=== PATIENT | male | born 1965 | race Caucasian/White ===

== ENCOUNTER 2018-06-17 09:01 | Day surgery (SDC) | payer BC ==
[~2018-06-17 09:01] MED LIST: Lactated Ringers 1,000 ML IV SCH; Lidocaine 1%/Sod Bicarbonate in NS 8.4% 1 ML Syringe IDERM PRN; Sodium Chloride 0.9% 10 ML Syringe FLUSH PRN
--- NOTE | 2018-06-17 09:11 | PCM.PREANE ---
Preanesthetic Assessment - Procedure Proposed Procedure: screening colonoscopy - Anesthesia/Transfusion/Family Hx Anesthesia History: Prior Anesthesia Without Reaction Family History of Anesthesia Reaction: No Transfusion History: No Prior Transfusion(s) - Review of Systems General: No Symptoms Pulmonary: No Symptoms, Other (had a cold a month ago- some cough still) Cardiovascular: No Symptoms Gastrointestinal: No Symptoms Neurological: No Symptoms Other: Reports: None - Physical Assessment NPO Status Date: 06/16/18 NPO Status Time: 04:00 (finished prep) Pulse: 72 O2 Sat by Pulse Oximetry: 98 Respiratory Rate: 16 Blood Pressure: 158/92 Temperature: 97.6 F Height: 6 ft 1 in Weight: 123.286 kg ASA Class: 2 Mental Status: Alert & Oriented x3 Dentition: Reports: Normal Dentition Thyro-Mental Finger Breadths: 3 Mouth Opening Finger Breadths: 3 ROM/Head Extension: Full Lungs: Clear to Auscultation, Normal Respiratory Effort Cardiovascular: Regular Rate, Regular Rhythm - Allergies Allergies/Adverse Reactions: Allergies Allergy/AdvReac Type Severity Reaction Status Date / Time No Known Allergies Allergy Verified 06/16/18 14:48 - Blood Blood Available: No - Acknowledgements Anesthesia Type Planned: MAC Pt an Appropriate Candidate for the Planned Anesthesia: Yes Alternatives and Risks of Anesthesia Discussed w Pt/Guardian: Yes Pt/Guardian Understands and Agrees with Anesthesia Plan: Yes PreAnesthesia Questionnaire HEENT History: Reports: Impaired Vision, Other (See Below) Other HEENT History: wears glasses Cardiovascular History: Reports: High Cholesterol, Hypertension Respiratory History: Reports: None Gastrointestinal History: Reports: Other (See Below) Other Gastrointestinal History: acid reflux, indigestion, sigmoid diverticulitis , abdominal pain Genitourinary History: Reports: Other (See Below) Other Genitourinary History: erectile dysfunction, hematuria, nocturia BURRER HAND History: Reports: None Musculoskeletal History: Reports: Gout, Other (See Below) Other Musculoskeletal History: achilles tendinitis, elbow bursitis, shoulder bursitis Neurological History: Reports: None Psychiatric History: Reports: None Endocrine/Metabolic History: Reports: Obesity/BMI 30+, Other (See Below) Other Endocrine/Metabolic History: hyperglycemia Hematologic History: Reports: Other (See Below) Other Hematologic History: supeficial thrombophelbitis Immunologic History: Reports: None Oncologic (Cancer) History: Reports: None Dermatologic History: Reports: None - Past Surgical History Head Surgeries/Procedures: Reports: None Cardiovascular Surgical History: Reports: None Respiratory Surgical History: Reports: None GI Surgical History: Reports: Colonoscopy Female Surgical History: Reports: None Male Surgical History: Reports: None Endocrine Surgical History: Reports: None Neurological Surgical History: Reports: None Musculoskeletal Surgical History: Reports: Arthroscopic Knee Oncologic Surgical History: Reports: None Dermatological Surgical History: Reports: None - SUBSTANCE USE Smoking Status *Q: Former Smoker (chewed 9 years ago) Tobacco Use Within Last Twelve Months: No Second Hand Smoke Exposure: No Days Per Week of Alcohol Use: 3 Number of Drinks Per Day: 5 Total Drinks Per Week: 15 Recreational Drug Use History: No - HOME MEDS Home Medications: Home Meds Allopurinol [Zyloprim] 100 mg PO DAILY 06/20/14 [History] hydroCHLOROthiazide [Hydrochlorothiazide] 25 mg PO DAILY 06/20/14 [History] Aspirin [Ecotrin] 81 mg PO DAILY 03/23/15 [History] Simvastatin [Zocor] 20 mg PO Q48H 03/23/15 [History] Lisinopril 20 mg PO DAILY 06/16/18 [History] Omeprazole 20 mg PO DAILY 06/16/18 [History] Sildenafil Citrate [Sildenafil] 60 mg PO ONETIME PRN 06/16/18 [History] Simvastatin 10 mg PO Q48H 06/16/18 [History] - CURRENT (IN HOUSE) MEDS Current Meds: Current Medications Lactated Ringer's (Ringers, Lactated) 1,000 mls @ 125 mls/hr IV ASDIRECTED NIGHAT Stop: 06/17/18 23:00 Lidocaine/Sodium Bicarbonate (Buffered Lidocaine 1% In Ns 8.4%) 0.25 ml IDERM ONETIME PRN PRN Reason: Prior to IV Start Stop: 06/17/18 18:00 Sodium Chloride (Saline Flush) 10 ml FLUSH ASDIRECTED PRN PRN Reason: Keep Vein Open Stop: 06/17/18 18:00 Discontinued Medications Lactated Ringer's (Ringers, Lactated) 1,000 mls @ 125 mls/hr IV ASDIRECTED NIGHAT Lidocaine/Sodium Bicarbonate (Buffered Lidocaine 1% In Ns 8.4%) 0.25 ml IDERM ONETIME PRN PRN Reason: Prior to IV Start Sodium Chloride (Saline Flush) 10 ml FLUSH ASDIRECTED PRN PRN Reason: Keep Vein Open
[2018-06-17] MEDS ORDERED: Midazolam 1 MG/ML 2 ML SDV ONE (09:31)
[2018-06-17] MEDS ORDERED: Propofol 200 MG/20 ML SDV ONE ×2 (09:31→09:57)
[2018-06-17] MEDS ORDERED: Lidocaine 1% 4 ML ONE (09:31)
[2018-06-17] MEDS ORDERED: fentaNYL 100 MCG/2 ML SDV ONE (09:31)
--- NOTE | 2018-06-17 10:23 | PCM48HPAN ---
Post Anesthesia Note - EVALUATION WITHIN 48HRS OF ANESTHETIC Vital Signs in Normal Range: Yes Patient Participated in Evaluation: Yes Respiratory Function Stable: Yes Airway Patent: Yes Cardiovascular Function Stable: Yes Hydration Status Stable: Yes Pain Control Satisfactory: Yes Nausea and Vomiting Control Satisfactory: Yes Mental Status Recovered: Yes Pulse Rate: 82 SaO2: 93 Resp Rate: 15 Temperature: 98.5 F Blood Pressure: 122/85
--- NOTE | 2018-06-17 11:19 | OR ---
DATE OF OPERATION: 06/17/2018 SURGEON: Silverio Tapia MD PREOPERATIVE DIAGNOSIS: Screening colonoscopy. POSTOPERATIVE DIAGNOSIS: Screening colonoscopy. OPERATION PERFORMED: Total colonoscopy with snare excision of 2 polyps, one very small 2 mm in the proximal transverse colon and one 3 to 4 mm in the mid sigmoid. ANESTHESIA: MAC. SPECIMEN: Polyp x1. I do not think we found the polyp on the transverse colon side. OPERATIVE FINDINGS: Polyp x2 and moderate sigmoid diverticulosis. RECOMMENDATION: Followup screening colonoscopy in 5 years for polyp surveillance. INDICATION FOR PROCEDURE: This 53-year-old male presents for screening colonoscopy. DESCRIPTION OF PROCEDURE: After adequate preparation, a colonoscope was inserted into the rectum. This was easily passed all the way to the cecum. Confirmation of the cecum was made by visualization of the ileocecal valve and palpation in the right lower quadrant. The bowel prep was good. On withdrawal of the scope, in the proximal transverse colon just past the hepatic flexure, there was a small 2 mm polyp. A snare was placed around this and clipped off. However, I was unable the find the polyp after I had clipped it off, but could see the stalk where it was so I am sure it was removed. In the mid sigmoid area, there was a slightly larger polyp that measured 3 to 4 mm in diameter. This was also clipped off with a snare and retrieved for pathological evaluation. He does have moderate sigmoid diverticulosis. Anal and rectal examination was normal. Air was suctioned from the colon and the scope removed. ESTIMATED BLOOD LOSS: MMODAL /[id number]
[2018-06-17 12:15] VITALS: BP 131/87
== END 2018-06-17 11:09 | disposition home or self-care (01) ==
LOC: JD.SDS 09:01
PROVIDERS: ATTEND Surgery
DX: Z12.11 Encounter for screening for malignant neoplasm of colon (principal); K63.5 Polyp of colon; K57.30 Diverticulosis of large intestine without perforation or abscess without bleeding; I10 Essential (primary) hypertension; E66.9 Obesity, unspecified; Z68.37 Body mass index [BMI] 37.0-37.9, adult; E78.00 Pure hypercholesterolemia, unspecified; Z79.899 Other long term (current) drug therapy; Z87.891 Personal history of nicotine dependence; Z79.82 Long term (current) use of aspirin; Z80.0 Family history of malignant neoplasm of digestive organs
CPT/HCPCS: 45385; J2001; J2250; J2704; J3010; J7120; 00811

== ENCOUNTER 2024-03-24 08:09 | Day surgery (SDC) | payer BC ==
[~2024-03-24 08:09] MED LIST changes: -Lactated Ringers 1,000 ML IV SCH; -Lidocaine 1%/Sod Bicarbonate in NS 8.4% 1 ML Syringe IDERM PRN; +Sodium Chloride 0.9% 10 ML Syringe FLUSH SCH
[2024-03-24] MEDS: Lactated Ringers 1,000 ML IV SCH (08:35)
[2024-03-24] MEDS ORDERED: Ondansetron 4 MG/2 ML SDV IVPUSH PRN (08:48)
[2024-03-24] MEDS ORDERED: fentaNYL 100 MCG/2 ML SDV IVPUSH PRN (08:48)
[2024-03-24] MEDS ORDERED: HYDROmorphone 0.5 MG/0.5 ML Syringe IVPUSH PRN (08:48)
[2024-03-24] MEDS ORDERED: Lidocaine 1% 4 ML ONE (09:11)
[2024-03-24] MEDS ORDERED: Propofol 200 MG/20 ML SDV ONE ×2 (09:11→09:23)
[2024-03-24 10:52] VITALS: BP 146/76; PULSE 71
== END 2024-03-24 10:58 | disposition home or self-care (01) ==
LOC: JD.SDS 08:09
PROVIDERS: ATTEND Surgery
DX: Z12.11 Encounter for screening for malignant neoplasm of colon (principal); D12.0 Benign neoplasm of cecum; D12.3 Benign neoplasm of transverse colon; D12.4 Benign neoplasm of descending colon; D12.5 Benign neoplasm of sigmoid colon; K57.30 Diverticulosis of large intestine without perforation or abscess without bleeding; I10 Essential (primary) hypertension; F17.200 Nicotine dependence, unspecified, uncomplicated; Z80.0 Family history of malignant neoplasm of digestive organs; Z86.0100 Personal history of colon polyps, unspecified; Z79.899 Other long term (current) drug therapy; Z79.84 Long term (current) use of oral hypoglycemic drugs
CPT/HCPCS: 45380; 45385; J2704; J7120; 00811; J3490